=== PATIENT | female | born 1955 | race Caucasian/White ===

== ENCOUNTER 2016-08-14 09:35 | Emergency (ER) | payer OTHER ==
[2016-08-14 09:45] VITALS: O2SAT 98
--- NOTE | 2016-08-14 10:00 | UCPHY ---
H & P Patient Type: Established Chief Complaint Nursing Narrative: LEFT ANKLE INJURY OCCURRED YESTERDAY MORNING WHEN DOING EXERCISE CLASS, NOW WITH PAIN AND SWELLING, +CMS Time Seen by Provider: 08/14/16 09:40 HPI/ROS: Chief complaint left ankle pain HPI: 60-year-old woman was in a step aerobics class yesterday when she misstepped and tripped and inverted her left ankle. She has been able to weight bear but with significant pain. Does not recall prior injuries. No numbness or tingling. Did not fall. ROS: 10 point Review of Systems is negative except as noted in the HPI. Past medical history: Depression Medications: Prozac Allergies: No known drug allergies Social history: Nonsmoking, rare alcohol, no drug use Physical exam: General: Awake, alert, no acute distress Left leg: Left hip full range of motion without pain. Left knee full range of motion of pain. There is no tenderness. Left ankle. She has got tenderness over the lateral malleolus and the anterior talofibular ligament. She has no midfoot tenderness. No medial tenderness. Decreased range of motion secondary to pain. There is mild swelling with some mild lateral ecchymosis. Cap refills less than 2 seconds. Sensations intact. She has 2+ DP and PT pulses. - Medical/Surgical History Other PMH: depression - Family History Significant Family History: No pertinent family hx - Social History Smoking Status: Former smoker Constitutional: Initial Vital Signs Temperature (C) 36.5 C 08/14/16 09:43 Heart Rate 58 L 08/14/16 09:43 Respiratory Rate 18 08/14/16 09:43 Blood Pressure 128/79 H 08/14/16 09:43 O2 Sat (%) 98 08/14/16 09:43 O2 Delivery Mode Room Air Allergies/Adverse Reactions: No Known Allergies Allergy (Verified 08/14/16 09:42) Home Medications: Medication Instructions Recorded PROzac 09/06/09 Medical Decision Making - Diagnostics Imaging: Ankle x-ray: Nondisplaced distal fibular fracture Procedures: Procedure: Splint placement. A posterior short-leg splint was applied. After application of the splint I returned and re-examined the patient. The splint was adequately immobilizing the joint and distal to the splint the patient's circulation and sensation was intact. Differential Diagnosis: Patient was given crutches. Splint was placed by tech. She will be for discharge with referral to follow up with Orthopedics. Departure - Departure Disposition: Home, Routine, Self-Care Clinical Impression: Ankle fracture Condition: Good Instructions: Ankle Fracture (ED) Additional Instructions: Keep the extremity elevated when possible. Apply ice for 15 minutes of every hour while awake. No weight-bearing, use crutches. You may take ibuprofen and acetaminophen as needed for the pain. Follow up with Orthopedics in about 5-7 days. Referrals: Henry Prajapati MD [Medical Doctor] - As per Instructions - PQRS PQRS Measurement: NA
[2016-08-14 13:44] VITALS: BP 115/74; PULSE 57; RESP 16; TEMP 99
== END 2016-08-14 10:57 | disposition home or self-care (01) ==
LOC: CED 09:35
DX: S82.832A Other fracture of upper and lower end of left fibula, initial encounter for closed fracture (principal); Z87.891 Personal history of nicotine dependence; W18.43XA Slipping, tripping and stumbling without falling due to stepping from one level to another, initial encounter; Y93.A3 Activity, aerobic and step exercise
CPT/HCPCS: 29515-PO; 73610-PO; 99214-PO; G0463-PO